=== PATIENT | female | born 1985 | race Hispanic/Latino ===

== ENCOUNTER 2017-06-11 20:20 | Emergency (ER) | payer SELFPAY ==
[2017-06-11] MEDS ORDERED: LIDOCAINE HCL-MPF 1% 2ML VIAL ONE (20:27)
[2017-06-11] MEDS ORDERED: TETANUS/DIPHTHERIA TOXOID [ADULT] 0.5 ML VIAL IM ONE (20:27)
== END 2017-06-11 21:43 | disposition home or self-care (01) ==
LOC: EDH 20:20
DX: S61.422A Laceration with foreign body of left hand, initial encounter (principal); W26.0XXA Contact with knife, initial encounter; Y93.89 Activity, other specified; Y92.098 Other place in other non-institutional residence as the place of occurrence of the external cause; Y99.8 Other external cause status
CPT/HCPCS: 12041; 90471; 90714; 99284; J3490